=== PATIENT | female | born 1940 | race Caucasian/White ===

== ENCOUNTER → 2018-01-10 | Outpatient (CLI) | payer MEDICARE ==
[~2018-01-10] MED LIST: BESIVANCE5 ML OD; CRESTOR10 MG PO; DUREZOL5 ML OD; HYDROCHLOROTH12.5 MG PO; ILEVRO OD; LEVOTHYROXINE100 MC1 PO; METOPROLOL SUCC25 MG PO; NITROFURANTOIN100 MG PO; NITROSTAT0.4 MG SL; RANEXA500 MG PO
--- NOTE | 2018-01-10 13:49 | Diagnostic Imaging Report ---
EXAM: Bone mineral density study 01/10/2018 12:46 PM INDICATION: \S\MENOPAUSE COMPARISON: None FINDINGS: Evaluation of the left hip and lumbar spine was performed. The study is technically adequate. The patient's fracture risk is compared to an age-matched control. The patient denies prior surgery/fracture of the spine, hips or forearm. LEFT HIP * Femoral neck bone mineral density: 0.738 gm/cm2, T-score is -1.0, Z-score is 1.1. * Total bone mineral density: 0.802 gm/cm2, T-score is -1.1, Z-score is 0.7. 10 -year fracture risk per WHO Fracture Risk Assessment Tool (FRAX) for: Major osteoporotic fracture is 13% Hip fracture is 2.4% The above fracture probability is calculated for an untreated patient. Fracture probably may be lower if the patient has received treatment. All treatment decisions require clinical judgment and consideration of individual patient factors, including patient preferences, comorbidities, previous drug use and risk factors not captured in the FRAX model (e.g. frailty, falls, vitamin D deficiency, increased bone turnover, interval significant decline in BMD). LUMBAR SPINE * Total bone mineral density: 0.853 gm/cm2, T-score is -1.8, Z-score is 0.7. * IMPRESSION: 1. LEFT HIP: Bone mineralization by WHO Classification is osteopenia, the fracture risk is medium. 2. LUMBAR SPINE: Bone mineralization by WHO Classification is osteopenia, the fracture risk is medium. Signed by: Dr. Sunday Rojas M.D. on 01/10/2018 1:45 PM
== END ==
LOC: DX 12:38
PROVIDERS: ATTEND Family Medicine
DX: M89.9 Disorder of bone, unspecified (principal)
CPT/HCPCS: 77080

== ENCOUNTER → 2018-08-17 | Outpatient (CLI) | payer MEDICARE ==
--- NOTE | 2018-08-17 16:57 | Diagnostic Imaging Report ---
MRI SPINE THORACIC WO, MRI SPINE LUMBAR WO HISTORY: Back pain COMPARISON: Report from thoracic and lumbar spine MRI dated 08/29/2016 (images not available at time of dictation) TECHNIQUE: Multiplanar, multisequence MRI examination of the thoracic and lumbar spine was performed without intravenous contrast. DISCUSSION: Thoracic kyphosis and lumbar lordosis are preserved. Mild lumbar levoscoliosis is present. There is no significant subluxation. Multilevel T1/T2 hypointense nodular vertebral body lesions are seen throughout the thoracic and lumbar spine. The largest measures up to 1.8 cm in the L1 vertebral body. A few scattered small nodular T1 hyperintense vertebral body lesions are likely benign hemangiomas. No vertebral compression deformities are seen. The visualized cord is normal in signal and morphology. The conus terminates at approximately L2, which is within normal limits. The cauda equina is unremarkable. The paravertebral and paraspinal soft tissues are unremarkable. Minimal thoracic disc degeneration is present. No significant canal or foraminal stenosis is seen in the thoracic spine. Mild multilevel lumbar disc degeneration is present. No significant canal or foraminal stenosis is seen in the lumbar spine. Moderate lower cervical disc degeneration is partially visualized. Multiple small nodular T2 hyperintense lesions along the bilateral renal gamal may be due to small cysts and/or calyectasis. IMPRESSION: 1. Nonspecific multilevel T1/T2 hypointense nodular vertebral body lesions throughout the thoracolumbar spine may be due to neoplastic process or other diffuse marrow process. Images from thoracolumbar spine MRI dated 08/29/2016 were not available for direct comparison at the time of this dictation (report was only available). 2. No vertebral compression deformity. 3. Mild multilevel thoracolumbar disc degeneration without significant canal or foraminal stenosis. Signed by: Dr. Raza Doan M.D. on 08/17/2018 4:54 PM
== END ==
LOC: MRI 14:36
PROVIDERS: ATTEND Internal Medicine
DX: M54.6 Pain in thoracic spine (principal); M54.5 Low back pain
CPT/HCPCS: 72146; 72148

== ENCOUNTER → 2018-08-29 | Outpatient (CLI) | payer MEDICARE ==
--- NOTE | 2018-08-30 17:45 | Diagnostic Imaging Report ---
CT THORACIC SPINE WO HISTORY: Upper back pain COMPARISON: MRI of the thoracic and lumbar spine 08/17/2018; report from thoracolumbar spine MRI dated 08/29/2016 TECHNIQUE: Axial CT images of the thoracic spine were obtained without intravenous contrast. Coronal/sagittal reformations were created. One or more of the following dose reduction techniques were used: Automated exposure control, adjustment of the mA and/or kV according to patient size, and/or utilization of iterative reconstruction technique. FINDINGS: Mild diffuse bone demineralization is present. Thoracic kyphosis is preserved. There is no significant scoliosis or subluxation. No definite acute fracture or compression deformity is seen. No definite suspicious lytic or blastic osseous lesions are seen. Focal, nonaggressive sclerotic lesion in the right C7 pedicle is likely a bone island. No gross spinal canal mass is seen. The paravertebral and paraspinal soft tissues are unremarkable. Mild multilevel spondylosis is present. There is no gross canal or foraminal stenosis. There is mild dependent atelectasis in the lungs. Small area of branching calcifications in the posterior right lower lobe may be due to granulomas. IMPRESSION: 1. Mild diffuse bone demineralization. 2. No acute osseous abnormalities. 3. No definite suspicious lytic or blastic osseous lesions. Previously seen nodular hypointense lesions on prior MRI may be areas of red marrow conversion. 4. Mild multilevel spondylosis. Signed by: Dr. Raza Doan M.D. on 08/30/2018 5:42 PM
== END ==
LOC: CT 16:06
PROVIDERS: ATTEND Neurological Surgery
DX: M47.814 Spondylosis without myelopathy or radiculopathy, thoracic region (principal)
CPT/HCPCS: 72128

== ENCOUNTER → 2018-09-03 | Outpatient (CLI) | payer MEDICARE ==
[~2018-09-03] MED LIST changes: +GADOBENATE DIMEGLUMINE 1 ML IV ONE
[2018-09-03 09:44] LABS: BLOOD UREA NITROGEN 19 mg/dL (7-26); BUN/CREATININE RATIO 25 (6-25); CREATININE, SERUM 0.76 mg/dL (0.57-1.11); EST GLOMERULAR FILTRATION RATE > 60 ML/MIN (60-)
--- NOTE | 2018-09-03 14:03 | Diagnostic Imaging Report ---
EXAMINATION: MRI of the thoracic spine with contrast HISTORY: Mid and upper back pain COMPARISON: Thoracic spine CT 08/29/2018 and thoracic spine MRI 08/17/2018 TECHNIQUE: Postcontrast sagittal and axial T1 fat sat. Coronal T2. Intravenous contrast: 14 mL of MultiHance FINDINGS: Curvature: Normal kyphosis. Vertebrae: Previously described areas of T1/T2 hypointensity throughout the thoracic vertebral bodies do not demonstrate enhancement, cortical disruption, periosteal reaction or extraosseous extension, they likely correspond to areas of marrow sparing/reconversion in this patient with diffuse osteopenia. Benign hemangiomas in the T5 and T9 vertebral bodies are unchanged. Discs: No significant degenerative changes, spinal canal or foraminal stenosis. Spinal canal: No mass or abnormal blood vessels. Spinal cord: Normal size and signal intensity. No abnormal enhancement. Foramina: Unremarkable. Paraspinal soft tissues: Unremarkable. Proximal ribs: No abnormal signal intensity. IMPRESSION: Nonspecific nonenhancing heterogeneous bone marrow signal intensity, this likely corresponds to areas of red marrow sparing/reconversion in this patient with osteopenia. Signed by: Dr. Keely Flower M.D. on 09/03/2018 1:59 PM
== END ==
LOC: MRI 08:51
PROVIDERS: ATTEND Neurological Surgery
DX: M47.814 Spondylosis without myelopathy or radiculopathy, thoracic region (principal)
CPT/HCPCS: 36415; 72147; 82565; 84520

== ENCOUNTER → 2018-09-17 | Outpatient (CLI) | payer MEDICARE ==
[~2018-09-17] MED LIST changes: -GADOBENATE DIMEGLUMINE 1 ML IV ONE
--- NOTE | 2018-09-17 12:24 | Diagnostic Imaging Report ---
Exam: Left shoulder radiographs-2 views History: Left shoulder pain Comparison: None. Findings: No evidence of acute fracture, malalignment, or soft tissue abnormality. There are mild left glenohumeral and moderate acromioclavicular joint degenerative changes. Impression: No acute radiographic abnormality. 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 Signed by: Dr. Romeo Pierre MD on 09/17/2018 12:20 PM
== END ==
LOC: RAD 11:30
PROVIDERS: ATTEND Internal Medicine
DX: M25.512 Pain in left shoulder (principal); M19.012 Primary osteoarthritis, left shoulder

== ENCOUNTER → 2019-04-11 | Outpatient (CLI) | payer MEDICARE ==
--- NOTE | 2019-04-11 09:10 | Diagnostic Imaging Report ---
Right knee MRI without contrast. History: Knee pain. Contusion. Decreased range of motion. Fall. Swelling Comparison: None. Technique: Multiplanar multi-sequence MRI of the knee without contrast. Findings: Medial compartment: Mild sprain of the medial collateral ligament with mild adjacent soft tissue edema. The medial meniscus is intact. The medial compartmental articular cartilage surfaces are slightly thin. Lateral compartment: No meniscal tear or cartilage abnormality. The LCL complex is normal. Intercondylar notch: The ACL and PCL are intact. Patellofemoral compartment: Regions of full-thickness articular cartilage loss in the patellofemoral compartment with underlying bone marrow edema. Extensor mechanism: The quadriceps and patellar tendons are normal. Other findings: There is a joint effusion and synovitis. There is no acute fracture, subluxation or avascular necrosis. Lobulated septated Abreu's cyst. Mild nonspecific prepatellar soft tissue edema could be due to a contusion. IMPRESSION: Mild sprain of the medial collateral ligament with mild adjacent soft tissue edema. Regions of full-thickness articular cartilage loss in the patellofemoral compartment with underlying bone marrow edema. Lobulated septated Abreu's cyst. Mild nonspecific prepatellar soft tissue edema could be due to a contusion. Signed by: Dr. Salvador Finch M.D. on 04/11/2019 9:07 AM
== END ==
LOC: MRI 07:18
PROVIDERS: ATTEND Specialist
DX: S80.01XD Contusion of right knee, subsequent encounter (principal); M17.0 Bilateral primary osteoarthritis of knee